=== PATIENT | female | born 1985 | race Caucasian/White ===

== ENCOUNTER 2018-03-07 16:23 | Emergency (ER) | payer MEDICAID ==
[2018-03-07] MEDS: IBUPROFEN 600 MG TAB PO (18:54)
== END 2018-03-07 20:49 | disposition home or self-care (01) ==
LOC: FTE 16:23
DX: M79.644 Pain in right finger(s) (principal)
CPT/HCPCS: 73130; 73130-RT; 99283-25

== ENCOUNTER 2019-02-06 09:00 | Emergency (ER) | payer MEDICAID ==
[2019-02-06] MEDS: LIDOCAINE 1% (MPF) 5 ML VIAL INJ (12:19)
[2019-02-06] MEDS: CEFTRIAXONE 1 GM INJ IM (12:19)
== END 2019-02-06 12:38 | disposition home or self-care (01) ==
LOC: FTE 12:38
DX: R22.9 Localized swelling, mass and lump, unspecified (principal)
CPT/HCPCS: 76536; 81025; 96372; 99285-25

== ENCOUNTER 2019-02-09 08:37 | Emergency (ER) | payer MEDICAID | END 2019-02-09 09:12 | disposition home or self-care (01) | LOC: FTE 08:37 | DX: M79.81 Nontraumatic hematoma of soft tissue (principal) | CPT/HCPCS: 99282; Z7502 ==